=== PATIENT | female | born 1995 | race Two or more races ===

== ENCOUNTER 2019-09-05 19:38 | Emergency (ER) | payer BC, MEDICAID ==
[~2019-09-05] VITALS: Ht 165.1 cm; Wt 53.0 kg
[~2019-09-05 19:38] MED LIST: ALPR0.5T PO
[2019-09-05 19:53] VITALS: BP 118/89
== END 2019-09-05 20:59 | disposition left against medical advice (07) ==
LOC: ER 19:38
DX: F15.90 Other stimulant use, unspecified, uncomplicated (principal); R41.82 Altered mental status, unspecified
CPT/HCPCS: 99284